=== PATIENT | male | born 2000 | race Hispanic/Latino ===

== ENCOUNTER 2018-11-29 15:24 | Inpatient (IN) | payer OTHER ==
[~2018-11-29] VITALS: Ht 177.8 cm; Wt 62.3 kg
[2018-11-29 17:41] LABS: HEMATOCRIT 47.4 % (42.0-52.0); HEMOGLOBIN 16.1 g/dl (13.5-17.5); MEAN CORPUSCULAR HEMOGLOBIN 31.2 pg (27.0-33.0); MEAN CORPUSCULAR VOLUME 91.9 fl (80.0-96.0); PLATELET COUNT, AUTOMATED 304 10^3/uL (150-450); RED BLOOD COUNT 5.16 10^6/uL (4.30-6.10); WHITE BLOOD COUNT 9.7 10^3/uL (4.0-10.0)
[2018-11-29 18:02] LABS: AMPHETAMINES LEVEL URINE NEGATIVE (NEGATIVE); BARBITURATES URINE NEGATIVE (NEGATIVE); BENZODIAZEPINES URINE NEGATIVE (NEGATIVE); CANNABINOIDS URINE POSITIVE (NEGATIVE); COCAINE METABOLITE URINE NEGATIVE (NEGATIVE); METHADONE URINE NEGATIVE (NEGATIVE); OPIATES URINE NEGATIVE (NEGATIVE); PHENCYCLIDINE URINE NEGATIVE (NEGATIVE)
[2018-11-29 18:21] LABS: ACETAMINOPHEN LEVEL < 2.0 UG/ML (10.0-30.0); ALBUMIN 4.8 GM/DL (3.2-5.2); ALT/SGPT 23 U/L (12-78); BILIRUBIN,DIRECT 0.3 MG/DL (0.0-0.2); BILIRUBIN,TOTAL 0.9 MG/DL (0.2-1.0); BLOOD UREA NITROGEN 19 MG/DL (7-18); CARBON DIOXIDE LEVEL 27 MEQ/L (21-32); CHLORIDE LEVEL 103 MEQ/L (98-107); CREATININE FOR GFR 1.02 MG/DL (0.70-1.30); ETHYL ALCOHOL (ETHANOL) < 0.003 % (0.000-0.010); GLUCOSE, FASTING 103 MG/DL (70-100); POTASSIUM SERUM 3.9 MEQ/L (3.5-5.1); SALICYLATE LEVEL < 1.7 MG/DL (5.0-30.0); SODIUM LEVEL 140 MEQ/L (136-145); TOTAL PROTEIN 7.7 GM/DL (6.4-8.2)
[2018-11-29] MEDS ORDERED: MAALOX 30 ML SUSP *UDC PO PRN (20:30)
[2018-11-29] MEDS ORDERED: MOM 30ML SUSPENSION UDC PO PRN (20:30)
[2018-11-29] MEDS ORDERED: ACETAMINOPHEN TAB 650MG DOSE (2X325MG) PO PRN (20:30)
[2018-11-29] MEDS ORDERED: hydrOXYzine 50 MG TAB PO PRN (20:30)
[2018-11-29] MEDS ORDERED: MIRTAZAPINE 15 MG TAB PO SCH (21:00)
[2018-11-29 22:53] VITALS: BP 122/74
[2018-11-30 06:33] VITALS: BP 110/64
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
[2018-11-30 18:22] VITALS: BP 139/88
[2018-11-30] MEDS ORDERED: SERTRALINE HCL 50 MG TAB PO SCH (21:00)
[2018-11-30] MEDS: MIRTAZAPINE 15 MG TAB PO SCH (21:51)
[2018-12-01 06:27] VITALS: BP 136/62
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
[2018-12-01 18:12] VITALS: BP 110/64
[2018-12-01 18:13] VITALS: BP 126/81
[2018-12-01] MEDS: MIRTAZAPINE 15 MG TAB PO SCH (22:26)
[2018-12-01] MEDS: SERTRALINE HCL 25 MG TABLET PO SCH (22:26)
[2018-12-02 06:45] VITALS: BP 132/60
--- NOTE | 2018-12-02 11:07 | MHIPNPDOC ---
[facility] Progress Note Progress Note DATE OF SERVICE: 12/02/18 HISTORY: Patient is a 18 -year-old , male, who according to ED report: " Pt states "a lot of problems back home ([place])" Pt reports that since he went home for [place], his depression has increased and within the last month he found out that his girlfriend and his brother are "you know" not dating but "you know". Pt presents with a very flat affect during interview. Pt reports that he has had thoughts of suicide and it "just being easier not being here" but has never had a plan with these thoughts. Pt reports that recently "I don't have good control over my emotions" he reports being "all over the place". Pt reports problems with sleep and a decreased appetite. Pt reports a Hx of mental health concerns as a child. He was in a "troubled youth" program in his teen ye ars".. VITAL SIGNS: See below. NEW TEST RESULTS: See below CURRENT MEDICATIONS: See below. MENTAL STATUS EXAMINATION: Patient is a 18-year old male, who is alert, cooperative, dressed in hospital clothes, looking sad and tired. Speech: Is normal rhythm, tone, rate and volume. Language skills are good Thought processes including: linear, coherent Thought content: Anxious thoughts about his future in the [employer], finding out his brother and girlfriend were in a relationships. He has sad/depressive thoughts because he misses his family and friends that are back in [place] Abstract reasoning, and computation: good Description of associations: good Description of abnormal or psychotic thoughts: Denies AV hallucinations, denies thought delusions, denies SI, denies HI Judgment: Improving Insight:Fair Orientation: intact. Recent and remote memory: intact. Attention span and concentration: good. Language: normal. Fund of knowledge: average. Mood: depressed. anxious. Affect: congruent with mood, constricted, sad, anxious. DIAGNOSES: 1. Major Depressive disorder, recurrent, severe 2. PTSD ( in reemission) 3. MITRA ASSESSMENT: Patient states he feels a bit better today but mood still appears quite depressed, flat, and anxious due to worrisome and depressive thoughts regarding missing his family and friends back home, brother being with his girlfriend, and dislike of being in the . Denies SI though. States he's tolerating his zoloft but has yet to notice if it's beneficial. Denies PTSD symptoms. States he's spoken with his Alfredo and they are supportive of him. Encouraged to continue to have communication and honesty with them. States he's attending groups and finding them beneficial. Endorses anxiety and encouraged to take vistaril prn to relieve it if he feels he need to. Sleeping well with remeron. Denies SI/HI, hallucinations, delusions. Feels safe here. MANAGEMENT PLAN: Zoloft to 75 mgs vistaril 50mg q6hr prn anxiety remeron 30mg qhs TIME SPENT: 30 minutes. Vital Signs Vital Signs Date Time Temp Pulse Resp B/P (MAP) Pulse Ox O2 Delivery O2 Flow Rate FiO2 12/02/18 06:45 97.6 65 14 132/60 (84) 12/01/18 08:17 Room Air 11/29/18 22:53 96 Current Medications Current Medications Acetaminophen (Tylenol Tab) 650 mg Q6HP PRN PO HEADACHE or DISCOMFORT; Start 11/29/18 at 20:30 Al Hydrox/Mg Hydrox/Simethicone (Mylanta) 30 ml Q4HP PRN PO HEARTBURN/INDIGESTION; Start 11/29/18 at 20:30 Home Med (Med Rec Complete!) ASDIRECTED XX ; Start 11/29/18 at 21:00; Stop 11/29/18 at 21:00; Status DC Hydroxyzine HCl (Atarax) 50 mg Q4HP PRN PO ANXIETY/AGITATION; Start 11/29/18 at 20:30 Magnesium Hydroxide (Milk Of Magnesia) 30 ml DAILYPRN PRN PO CONSTIPATION; Start 11/29/18 at 20:30 Mirtazapine (Remeron) 15 mg QHS PO Last administered on 11/29/18at 23:02; Start 11/29/18 at 21:00; Stop 11/30/18 at 14:13; Status DC Mirtazapine (Remeron) 30 mg QHS PO Last administered on 12/01/18at 22:26; Start 11/30/18 at 21:00 Sertraline HCl (Zoloft) 50 mg QHS PO Last administered on 11/30/18at 21:51; Start 11/30/18 at 21:00; Stop 12/01/18 at 13:32; Status DC Sertraline HCl (Zoloft) 75 mg QHS PO Last administered on 12/01/18at 22:26; Start 12/01/18 at 21:00 Allergies Coded Allergies: No Known Allergies (Unverified , 11/29/18) MATT MUÑOZ DO Dec 02, 2018 10:55 am
[2018-12-02 18:00] VITALS: BP 136/80
[2018-12-02] MEDS: MIRTAZAPINE 15 MG TAB PO SCH (21:23)
[2018-12-02] MEDS: SERTRALINE HCL 25 MG TABLET PO SCH (21:24)
[2018-12-03 06:30] VITALS: BP 115/66
--- NOTE | 2018-12-03 07:54 | HPE ---
DATE OF ADMISSION: 11/29/2018 HISTORY OF PRESENT ILLNESS: Please refer to the psychiatric history and evaluation for further details on this admission. This examination and history was intended for treatment followup or consult on this 18-year-old male. ALLERGIES: No known allergies. PRIMARY CARE PROVIDER: [facility]. 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 He does not smoke cigarettes, recreational drug use he rarely uses marijuana. PAST MEDICAL HISTORY: Depression. PAST SURGICAL HISTORY: Repaired tendon index finger right hand, abdominal surgery as a toddler. He does not quite remember what. He does have a small mid abdominal incision. HOME MEDICATIONS: None. FAMILY HISTORY: Noncontributory. REVIEW OF SYSTEMS: Unremarkable. He had no medical complaints. PHYSICAL EXAMINATION: 18-year-old cooperative male in no acute distress. Height 70 inches, Weight 62.8 kg, BMI 20.2, blood pressure 110/64, pulse 60, temperature 97.2, respirations 14, Oxygen saturation 97%. Patient is alert and oriented times three. Pupils are equal and reactive to light. EOM's are intact. Conjunctiva is normal. No facial asymmetry. Pharynx pink and moist. Tongue is midline. Neck is supple without lymphadenopathy, no thyromegaly without bruit. Chest is clear to auscultation without wheeze or retraction, heart is regular. Abdomen is benign. Bowel sounds are positive. and rectal not done. Extremities show equal strength and full range of motion. No cyanosis, clubbing or edema. Peripheral pulses are equal and palpable bilaterally. Skin is warm and dry. IMPRESSION AND PLAN: Psychiatric plan for psychiatry. No acute medical issues.
--- NOTE | 2018-12-03 10:30 | MHIPNPDOC ---
[facility] Progress Note Progress Note DATE OF SERVICE: 12/03/18 HISTORY: Per admit note: "Patient is a 18 -year-old , male, who according to ED report: "Pt states "a lot of problems back home ([place])" Pt reports that since he went home for [place], his depression has increased and within the last month he found out that his girlfriend and his brother are "you know" not dating but "you know". Pt presents with a very flat affect during interview. Pt reports that he has had thoughts of suicide and it "just being easier not being here" but has never had a plan with these thoughts. Pt reports that recently "I don't have good control over my emotions" he reports being "all over the place". Pt reports problems with sleep and a decreased appetite. Pt reports a Hx of mental health concerns as a child. He was in a "troubled youth" program in his teen years". VITAL SIGNS: See below. NEW TEST RESULTS: See below CURRENT MEDICATIONS: See below. MENTAL STATUS EXAMINATION: Patient is a 18-year old male, who is alert, cooperative, dressed in hospital clothes, looking sad and tired. Speech: Is normal rhythm, tone, rate and volume. Language skills are good Thought processes including: linear, coherent Thought content: Anxious thoughts about returning to the [employer]. He has sad/depressive thoughts because he misses his family and friends that are back in [place] Abstract reasoning, and computation: good Description of associations: good Description of abnormal or psychotic thoughts: Denies AV hallucinations, denies thought delusions, denies SI, denies HI Judgment: Improving Insight:Fair Orientation: intact. Recent and remote memory: intact. Attention span and concentration: good. Language: normal. Fund of knowledge: average. Mood: depressed. anxious. Affect: congruent with mood, constricted, sad, anxious. DIAGNOSES: 1. Major Depressive disorder, recurrent, severe 2. PTSD ( in reemission) 3. 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 Pt encouraged to reach out to his Alfredo to improve his anxiety regarding fear of returning to duty due to dislike as they may be able to help him and improve things overall. 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 Denies SI today. States he's tolerating his zoloft but has yet to notice if it's beneficial. Denies PTSD symptoms. States he's spoken with his Alfredo and they are supportive of him. Encouraged to continue to have communication and honesty with them. States he's attending groups and finding them beneficial. Endorses anxiety and encouraged to take vistaril prn to relieve it if he feels he need to. Sleeping well with remeron. Denies SI/HI, hallucinations, delusions. Feels safe here. MANAGEMENT PLAN: Zoloft to 75 mgs vistaril 50mg q6hr prn anxiety remeron 30mg qhs TIME SPENT: 30 minutes. Vital Signs Vital Signs Date Time Temp Pulse Resp B/P (MAP) Pulse Ox O2 Delivery O2 Flow Rate FiO2 12/03/18 06:30 97.7 63 12 115/66 (82) 12/01/18 08:17 Room Air 11/29/18 22:53 96 Current Medications Current Medications Acetaminophen (Tylenol Tab) 650 mg Q6HP PRN PO HEADACHE or DISCOMFORT; Start 11/29/18 at 20:30 Al Hydrox/Mg Hydrox/Simethicone (Mylanta) 30 ml Q4HP PRN PO HEARTBURN/INDIGESTION; Start 11/29/18 at 20:30 Home Med (Med Rec Complete!) ASDIRECTED XX ; Start 11/29/18 at 21:00; Stop 11/29/18 at 21:00; Status DC Hydroxyzine HCl (Atarax) 50 mg Q4HP PRN PO ANXIETY/AGITATION; Start 11/29/18 at 20:30 Magnesium Hydroxide (Milk Of Magnesia) 30 ml DAILYPRN PRN PO CONSTIPATION; Start 11/29/18 at 20:30 Mirtazapine (Remeron) 15 mg QHS PO Last administered on 11/29/18at 23:02; Start 11/29/18 at 21:00; Stop 11/30/18 at 14:13; Status DC Mirtazapine (Remeron) 30 mg QHS PO Last administered on 12/02/18at 21:23; Start 11/30/18 at 21:00 Sertraline HCl (Zoloft) 50 mg QHS PO Last administered on 11/30/18at 21:51; Start 11/30/18 at 21:00; Stop 12/01/18 at 13:32; Status DC Sertraline HCl (Zoloft) 75 mg QHS PO Last administered on 12/02/18at 21:24; Start 12/01/18 at 21:00 Allergies Coded Allergies: No Known Allergies (Unverified , 11/29/18) MATT MUÑOZ DO Dec 03, 2018 10:16 am
[2018-12-03 18:00] VITALS: BP 134/87
[2018-12-03] MEDS: SERTRALINE HCL 25 MG TABLET PO SCH (20:45)
[2018-12-03] MEDS: MIRTAZAPINE 15 MG TAB PO SCH (20:45)
[2018-12-04 06:29] VITALS: BP 115/56
--- NOTE | 2018-12-04 10:17 | MHIPNPDOC ---
[facility] Progress Note Progress Note DATE OF SERVICE: 12/04/18 HISTORY: Per admit note: "Patient is a 18 -year-old , male, who according to ED report: "Pt states "a lot of problems back home ([place])" Pt reports that since he went home for Tami, his depression has increased and within the last month he found out that his girlfriend and his brother are "you know" not dating but "you know". Pt presents with a very flat affect during interview. Pt reports that he has had thoughts of suicide and it "just being easier not being here" but has never had a plan with these thoughts. Pt reports that recently "I don't have good control over my emotions" he reports being "all over the place". Pt reports problems with sleep and a decreased appetite. Pt reports a Hx of mental health concerns as a child. He was in a "troubled youth" program in his teen years". VITAL SIGNS: See below. NEW TEST RESULTS: See below CURRENT MEDICATIONS: See below. MENTAL STATUS EXAMINATION: Patient is a 18-year old male, who is alert, cooperative, dressed in hospital clothes, looking sad and tired. Speech: Is normal rhythm, tone, rate and volume. Language skills are good Thought processes including: linear, coherent Thought content: Anxious thoughts about returning to the [employer] that he states are improving. less sad/depressive thoughts because he misses his family and friends Abstract reasoning, and computation: good Description of associations: good Description of abnormal or psychotic thoughts: Denies AV hallucinations, denies thought delusions, denies SI, denies HI Judgment: Improving Insight:Fair Orientation: intact. Recent and remote memory: intact. Attention span and concentration: good. Language: normal. Fund of knowledge: average. Mood: less depressed. less anxious. Affect: congruent with mood, less constricted, sad, anxious. DIAGNOSES: 1. Major Depressive disorder, recurrent, severe 2. PTSD ( in reemission) 3. MITRA ASSESSMENT: Patient states he feels "better" today and appears less depressed, flat, and anxious. Continues to endorse mostly anticipatory anxiety regard returning to duty as feels lonely in [place] b/c he has yet to make close friends. States he knows he has to go back and that he's been using copi ng mechanisms he learned in groups to improve anxiety. States deep breathing is helpful for him. Pt encouraged to reach out to his Alfredo to improve his anxiety regarding fear of returning to duty due to dislike as they may be able to help him and improve things overall. 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 Denies SI today. States he's tolerating his zoloft and feels it's beneficial. Denies PTSD symptoms. States he's spoken with his Alfredo and they are supportive of him. Encouraged to continue to have communication and honesty with them. States he's attending groups and finding them beneficial. Sleeping well with remeron. Denies SI/HI, hallucinations, delusions. Feels safe here. MANAGEMENT PLAN: Zoloft to 75 mgs vistaril 50mg q6hr prn anxiety remeron 30mg qhs TIME SPENT: 30 minutes. Vital Signs Vital Signs Date Time Temp Pulse Resp B/P (MAP) Pulse Ox O2 Delivery O2 Flow Rate FiO2 12/04/18 06:29 97.6 50 12 115/56 (75) 12/01/18 08:17 Room Air 11/29/18 22:53 96 Current Medications Current Medications Acetaminophen (Tylenol Tab) 650 mg Q6HP PRN PO HEADACHE or DISCOMFORT; Start 11/29/18 at 20:30 Al Hydrox/Mg Hydrox/Simethicone (Mylanta) 30 ml Q4HP PRN PO HEARTBURN/INDIGESTION; Start 11/29/18 at 20:30 Home Med (Med Rec Complete!) ASDIRECTED XX ; Start 11/29/18 at 21:00; Stop 11/29/18 at 21:00; Status DC Hydroxyzine HCl (Atarax) 50 mg Q4HP PRN PO ANXIETY/AGITATION; Start 11/29/18 at 20:30 Magnesium Hydroxide (Milk Of Magnesia) 30 ml DAILYPRN PRN PO CONSTIPATION; Start 11/29/18 at 20:30 Mirtazapine (Remeron) 15 mg QHS PO Last administered on 11/29/18at 23:02; Start 11/29/18 at 21:00; Stop 11/30/18 at 14:13; Status DC Mirtazapine (Remeron) 30 mg QHS PO Last administered on 4/2/19at 20:45; Start 11/30/18 at 21:00 Sertraline HCl (Zoloft) 50 mg QHS PO Last administered on 11/30/18at 21:51; Start 11/30/18 at 21:00; Stop 12/01/18 at 13:32; Status DC Sertraline HCl (Zoloft) 75 mg QHS PO Last administered on 12/03/18 20:45; Start 12/01/18 at 21:00 Allergies Coded Allergies: No Known Allergies (Unverified , 11/29/18) MATT MUÑOZ DO Dec 04, 2018 9:57 am
[2018-12-04 18:00] VITALS: BP_SYST 112; BP_SYST 140; BP_DIAS 60; BP_DIAS 91
[2018-12-04] MEDS: MIRTAZAPINE 15 MG TAB PO SCH (20:37)
[2018-12-04] MEDS: SERTRALINE HCL 25 MG TABLET PO SCH (20:37)
[2018-12-05 06:29] VITALS: BP 117/58
[2018-12-05] MEDS ORDERED: MIRT15TA3 PO (08:54)
[2018-12-05] MEDS ORDERED: SERT25TA PO (08:54)
[2018-12-05] MEDS ORDERED: HYDRO50TAB PO (08:54)
--- NOTE | 2018-12-05 08:54 | MHDSPDOC ---
[facility] Discharge Summary Discharge Summary DATE OF ADMISSION: Nov 29, 2018 at 8:24 pm DATE OF DISCHARGE: December 05, 2018 DISCHARGE DIAGNOSES: 1. Major Depressive disorder, recurrent, severe 2. PTSD ( in reemission) 3. MITRA REASON FOR ADMISSION: Per admit note: "Patient is a 18 -year-old , male, who according to ED report: "Pt states "a lot of problems back home ([place])" Pt reports that since he went home for Tami, his depression has increased and within the last month he found out that his girlfriend and his brother are "you know" not dating but "you know". Pt presents with a very flat affect during interview. Pt reports that he has had thoughts of suicide and it "just being easier not being here" but has never had a plan with these thoughts. Pt reports that recently "I don't have good control over my emotions" he reports being "all over the place". Pt reports problems with sleep and a decreased appetite. Pt reports a Hx of mental health concerns as a child. He was in a "troubled youth" program in his teen years". CONSULTANTS INVOLVED: none TREATMENT AND PROGRESS ON THE UNIT :Pt was admitted to [facility], seen for psychiatric assessment and restarted on his outpatient medication zoloft increased to 75mg daily and remeron 30mg qhs. He was provided vistaril 50mg q6hr prn anxiety. Pt found his medications beneficial and tolerated them well. He attended groups daily during his stay. His symptoms improved with treatment. On day of discharge he denied depression, anxiety, insomnia, SI/HI, hallucinations, delusions. He was discharged home after [facility] meeting with follow-up at [facility]. He felt safe for discharge. DISCHARGE ASSESSMENT: Patient states he feels "good" and feels ready to be d/c home with his Alfredo today. He appears euthymic, full, calm. States he's ready to go back to [employer] and work in [employer] to continue to be better. States deep breathing is helpful for his anxiety and plans to continue to use it to cope once he goes home. States he's tolerating his zoloft and feels it's beneficial. He attended groups during his stay which he found beneficial. Denies PTSD symptoms. States he's spoken with his Alfredo and they are supportive of him. Sleeping well with remeron. Denies depression, anxiety, insomnia, SI/HI, hallucinations, delusions. Feels safe to be d/c home with Alfredo. MENTAL STATUS EXAMINATION ON DISCHARGE: Patient is a 18-year old male, who is alert, cooperative, dressed in hospital clothes Speech: Is normal rhythm, tone, rate and volume. Language skills are good Thought processes including: linear, logical, coherent Thought content: denies SI/HI, future oriented Abstract reasoning, and computation: good Description of associations: good Description of abnormal or psychotic thoughts: Denies AV hallucinations, denies thought delusions, denies SI, denies HI Judgment: good Insight:good Orientation: intact. Recent and remote memory: intact. Attention span and concentration: good. Language: normal. Fund of knowledge: average. Mood: euthymic, full. Affect: congruent with mood, euthymic, full MEDICATIONS ON DISCHARGE: Zoloft to 75 mgs vistaril 50mg q6hr prn anxiety remeron 30mg qhs PLAN/FOLLOWUP ARRANGEMENTS: D/c home with Alfredo with follow-up at [facility]. The amount of time spent in the coordination of care for this patient was approximately 30 minutes. Vital Signs/I&Os Vital Signs Date Time Temp Pulse Resp B/P (MAP) Pulse Ox O2 Delivery O2 Flow Rate FiO2 12/05/18 06:29 97.3 54 14 117/58 (77) 12/01/18 08:17 Room Air 11/29/18 22:53 96 Medications No Active Prescriptions or Reported Meds Allergies Coded Allergies: No Known Allergies (Unverified , 11/29/18) MATT MUÑOZ DO Dec 05, 2018 8:54 am
== END 2018-12-05 11:05 | disposition home or self-care (01) | DRG 885 ==
LOC: M ED 15:24 → M ED INP 20:24 → M PSY 21:20
PROVIDERS: ADMIT Psychiatry & Neurology Psychiatry; ATTEND Psychiatry & Neurology Psychiatry
DX: F33.2 Major depressive disorder, recurrent severe without psychotic features (principal); F41.1 Generalized anxiety disorder